=== PATIENT | female | born 1965 | race Caucasian/White ===

== ENCOUNTER 2017-01-12 08:47 | Observation (INO) | payer BC ==
[~2017-01-12] VITALS: Ht 180.3 cm; Wt 66.7 kg
[2017-01-12] VITALS (7 sets, daily range): BP systolic 99–157; BP diastolic 47–77; PULSE 55–62; TEMP 36.5–36.8; O2SAT 96–100; Ht 180.3 cm; Wt 66.7 kg
[2017-01-12] MEDS ORDERED: ONDANSETRON INJ 2 MG/ML 2 ML VIAL IV STA (08:59)
[2017-01-12] MEDS ORDERED: SODIUM CHLORIDE 0.9% 1000ML 1,000 ML IV STA ×2 (08:59→11:02)
--- NOTE | 2017-01-12 09:02 | EMERGENCY ROOM VISIT NOTE ---
History First contact with patient: 08:52 Chief Complaint: NAUSEA Stated Complaint: STOMACH PAIN,NAUSEA Nursing Triage Summary: Nausea, abdominal discomfort. "It may be food poisoning." per pt. History of Present Illness The patient is a 51 year old female who presents to the Emergency Room with complaints of nausea and abdominal pain. The patient states her pain started around 10 PM last night. She reported diffuse abdominal discomfort. She reports nausea. She rates her discomfort a 7/10. She denies any fevers. She denies any dysuria, urgency, frequency or hematuria. She denies diarrhea. She denies any earache, sore throat, cough. The patient was seen at [facility] and referred to the emergency department for further evaluation and management. Review of Systems A 10 system review of systems was completed with positives and pertinent negatives listed in the HPI. Past Medical/Surgical History Medical Problems: (1) Appendicitis Surgical Problems: (1) Previous back surgery Social History Smoking Status: Former Smoker Housing Status: lives with family Current/Historical Medications No Active Prescriptions or Reported Meds Allergies Coded Allergies: No Known Allergies (Unverified , 01/12/17) Physical Exam Vital Signs Date Time Temp Pulse Resp B/P Pulse Ox O2 Delivery O2 Flow Rate FiO2 01/12/17 15:00 60 14 115/70 100 Nasal Cannula 2 01/12/17 14:50 60 14 115/75 100 Mask 10 01/12/17 14:40 63 14 115/75 100 Mask 10 01/12/17 14:34 36.2 77 14 122/75 100 Mask 10 01/12/17 13:20 69 16 134/72 100 01/12/17 11:41 59 18 101/53 100 Room Air 01/12/17 10:44 16 116/76 99 Room Air 01/12/17 08:49 36.4 89 16 125/71 99 Room Air Physical Exam VITALS: Vitals are noted on the nurse's note and reviewed by myself. Vital signs stable. The patient is afebrile. GENERAL: This is a 51-year-old female, in no acute distress, nondiaphoretic, well-developed well-nourished. SKIN: The skin was without rashes, erythema, edema, or bruising. There is no tenting of the skin. Capillary reflex less than 2 seconds. HEAD: Normocephalic atraumatic. EARS: The external ears are normal in appearance. EYES: Pupils equal round and reactive to light and accommodation. Conjunctivae without injection, sclerae without icterus. Extraocular movements intact. NOSE: Patent, turbinates without inflammation or discharge. MOUTH: Mucous membranes moist. Tonsils are not enlarged. Pharynx without erythema or exudate. Uvula midline. Airway patent. Tongue does not deviate. NECK: Supple without nuchal rigidity. No JVD. HEART: Regular rate and rhythm without murmurs gallops or rubs. LUNGS: Clear to auscultation bilaterally without wheezes, rales or rhonchi. No retractions or accessory muscle use. ABDOMEN: Positive bowel sounds x 4. Soft, mild diffuse tenderness, moderate right lower quadrant tenderness, without masses or organomegaly. MUSCULOSKELETAL: No muscle atrophy, erythema, or edema noted. Full range of motion in all extremities. Normal gait. Strength 5/5 throughout. NEURO: Patient was alert and oriented to person place and time. No focal neurological deficits. Medical Decision & Procedures ER Provider Diagnostic Interpretation: [~ rep ct add3]] CT ABD/PELVIS IV AND ORAL CONT CLINICAL HISTORY: Right lower quadrant pain. Nausea. COMPARISON STUDY: None. TECHNIQUE: Following the IV administration of 122 mL of Optiray-320, CT scan of the abdomen and pelvis was performed from the lung bases to the proximal femurs. Images are reviewed in the axial, sagittal, and coronal planes. IV contrast was administered without complication. CT DOSE: 268.88 mGy.cm FINDINGS: Lower chest: There is a partially visualized 32 mm right breast mass. Liver: There is a 7 mm hypodensity within the right hepatic lobe, likely representing a cyst. Gallbladder: Unremarkable. Spleen: Normal in size and attenuation. Pancreas: Unremarkable. Adrenal glands: Unremarkable. Kidneys: There is symmetric renal cortical enhancement. The kidneys are normal in size without hydronephrosis. Bowel: There are no transition zones indicate bowel obstruction. There is no evidence of acute diverticulitis. There is appendiceal thickening with infiltration the periappendiceal fat. The findings are indicative of acute appendicitis. Peritoneum: There is trace free fluid likely physiologic. No free intraperitoneal air is visualized. Vasculature: The abdominal aorta is normal in course and caliber. Adenopathy: None. Pelvic viscera: The uterus is prominent with an 11 mm endometrial stripe. Skeletal structures: There is a sclerotic lesion within the L3 vertebra, likely representing a bone island IMPRESSION: 1. Appendiceal dilatation with infiltration of the periappendiceal inflammatory fat. The findings are indicative of acute appendicitis and surgical consultation is recommended 2. Partially visualized 32 mm circumscribed right breast mass Laboratory Results 01/12/17 09:05 Red Blood Count 4.72, Mean Corpuscular Volume 87.7, Mean Corpuscular Hemoglobin 30.3, Mean Corpuscular Hemoglobin Concent 34.5, Mean Platelet Volume 10.8, Neutrophils (%) (Auto) 87.2, Lymphocytes (%) (Auto) 6.2, Monocytes (%) (Auto) 6.2, Eosinophils (%) (Auto) 0.0, Basophils (%) (Auto) 0.2, Neutrophils # (Auto) 11.59, Lymphocytes # (Auto) 0.83, Monocytes # (Auto) 0.82, Eosinophils # (Auto) 0.00, Basophils # (Auto) 0.02 01/12/17 09:05 Test 01/12/17 09:05 01/12/17 09:22 White Blood Count 13.29 K/uL (4.8-10.8) Red Blood Count 4.72 M/uL (4.2-5.4) Hemoglobin 14.3 g/dL (12.0-16.0) Hematocrit 41.4 % (37-47) Mean Corpuscular Volume 87.7 fL (80-100) Mean Corpuscular Hemoglobin 30.3 pg (25-34) Mean Corpuscular Hemoglobin Concent 34.5 g/dl (32-36) Platelet Count 274 K/uL (130-400) Mean Platelet Volume 10.8 fL (7.4-10.4) Neutrophils (%) (Auto) 87.2 % Lymphocytes (%) (Auto) 6.2 % Monocytes (%) (Auto) 6.2 % Eosinophils (%) (Auto) 0.0 % Basophils (%) (Auto) 0.2 % Neutrophils # (Auto) 11.59 K/uL (1.4-6.5) Lymphocytes # (Auto) 0.83 K/uL (1.2-3.4) Monocytes # (Auto) 0.82 K/uL (0.11-0.59) Eosinophils # (Auto) 0.00 K/uL (0-0.5) Basophils # (Auto) 0.02 K/uL (0-0.2) RDW Standard Deviation 39.5 fL (36.4-46.3) RDW Coefficient of Variation 12.3 % (11.5-14.5) Immature Granulocyte % (Auto) 0.2 % Immature Granulocyte # (Auto) 0.03 K/uL (0.00-0.02) Urine Color YELLOW Urine Appearance SL CLOUDY (CLEAR) Urine pH 8.0 (4.5-7.5) Urine Specific [place] 1.015 (1.000-1.030) Urine Protein NEG (NEG) Urine Glucose (UA) NEG (NEG) Urine Ketones 2+ (NEG) Urine Occult Blood NEG (NEG) Urine Nitrite NEG (NEG) Urine Bilirubin NEG (NEG) Urine Urobilinogen NEG (NEG) Urine Leukocyte Esterase NEG (NEG) Anion Gap 11.0 mmol/L (3-11) Est Creatinine Clear Calc Drug Dose 65.1 ml/min Estimated GFR () 68.3 Estimated GFR (Non- 58.9 BUN/Creatinine Ratio 12.6 (10-20) Calcium Level 9.7 mg/dl (8.5-10.1) Total Bilirubin 0.7 mg/dl (0.2-1) Aspartate Amino Transf (AST/SGOT) 20 U/L (15-37) Alanine Aminotransferase (ALT/SGPT) 23 U/L (12-78) Alkaline Phosphatase 100 U/L (45-117) Total Protein 8.2 gm/dl (6.4-8.2) Albumin 4.3 gm/dl (3.4-5.0) Globulin 3.9 gm/dl (2.5-4.0) Albumin/Globulin Ratio 1.1 (0.9-2) Lipase 145 U/L (73-393) Urine Test NEG (NEG) Medications Administered Medications (Trade) Dose Ordered Sig/Phuc Route Start Time Stop Time Status Last Admin Dose Admin Sodium Chloride (Nss 1000ml) 1,000 ml @ 999 mls/hr Q1H1M STAT IV 01/12/17 08:59 01/12/17 09:59 DC 01/12/17 09:11 999 MLS/HR Ondansetron HCl 4 mg 4 mg NOW STAT IV 01/12/17 08:59 01/12/17 09:00 DC 01/12/17 09:10 4 MG Sodium Chloride (Nss 1000ml) 1,000 ml @ 999 mls/hr Q1H1M STAT IV 01/12/17 11:02 01/12/17 12:02 DC 01/12/17 11:38 999 MLS/HR Cefazolin Sodium (Ancef Inj) 1,000 mg STK-MED ONCE .ROUTE 01/12/17 12:56 01/12/17 13:00 DC 01/12/17 14:13 1,000 MG Heparin Sodium (Porcine) (Heparin Iv Bolus) 10,000 unit STK-MED ONCE .ROUTE 01/12/17 12:57 01/12/17 13:00 DC 01/12/17 14:14 10,000 UNIT Bupivacaine HCl (Marcaine 0.5% MPF Inj) 30 ml STK-MED ONCE .ROUTE 01/12/17 12:57 01/12/17 13:00 DC 01/12/17 14:15 30 ML ED Course The patient was seen and examined. Previous visits were reviewed. The patient does not have a fever. She does have a leukocytosis of 13.29. She does not have any significant electrolyte abnormality. Lipase was not elevated. Urinalysis reveals 2+ ketones. Urine test is negative. CT scan of the abdomen and pelvis was obtained. The imaging is consistent with acute appendicitis. Incidentally, a 32 mm circumscribe right breast mass is partially visualized on the abdomen and pelvis CT. I discussed this with the patient and she states that this mass is known. She states it is benign and she has had mammograms an extensive evaluation for it. The patient was given 4 mg IV Zofran and hydrated with 1 L of normal saline solution. The patient stated that her nausea and pain were well controlled. I discussed the case with Dr. Mckeon who will evaluate the patient. The case was also discussed with Dr. Marroquin who agrees with the assessment and treatment plan. Medical Decision DIFFERENTIAL DIAGNOSIS: Hepatitis, cholecystitis, cholangitis, biliary colic, pancreatitis, pneumonia, subdiaphragmatic abscess, appendicitis, inguinal hernia , nephrolithiasis, inflammatory bowel disease, mesenteric adenitis, peptic ulcer disease, GERD, gastritis, pancreatitis, myocardial infarction, pericarditis, ruptured aortic aneurysm, appendicitis, gastroenteritis, bowel obstruction, splenic infarct, diverticulitis, mesenteric ischemia, metabolic, peritonitis, among others. Impression Primary Impression: Appendicitis Departure Information Prescriptions No Active Prescriptions or Reported Meds Referrals No Doctor, Assigned (PCP) Patient Instructions [facility] Problem Qualifiers Primary Impression: Appendicitis Appendicitis type: acute appendicitis
[2017-01-12] MEDS ORDERED: OPTIRAY 320 IV PRN (09:15)
[2017-01-12 10:14] LABS: BASO % 0.2 %; BASO ABS # 0.02 K/uL (0-0.2); COMPLETE YES; HEMATOCRIT 41.4 % (37-47); IG% 0.2 %; LYMPH % 6.2 %; LYMPH ABS # 0.83 K/uL (1.2-3.4); MEAN CELL VOLUME 87.7 fL (80-100); MEAN CORPUSCULAR HEMOGLOBIN 30.3 pg (25-34); MEAN CORPUSCULAR HGB CONC 34.5 g/dl (32-36); MEAN PLATELET VOLUME 10.8 fL (7.4-10.4); MONO % 6.2 %; NEUT % 87.2 %; PLATELET COUNT 274 K/uL (130-400); RED BLOOD COUNT 4.72 M/uL (4.2-5.4); WHITE BLOOD COUNT 13.29 K/uL (4.8-10.8)
[2017-01-12 10:29] LABS: MANUAL MICROSCOPIC REQUIRED? NO; URINE APPEARANCE SL CLOUDY (CLEAR); URINE BILIRUBIN NEG (NEG); URINE COLOR YELLOW; URINE NITRITE NEG (NEG); URINE SPECIFIC GRAVITY 1.015 (1.000-1.030); UROBILINOGEN NEG (NEG)
[2017-01-12 10:34] LABS: REVIEW REQ? NO; ZZUR CULT IF INDIC CLEAN CATCH NO
[2017-01-12 10:35] LABS: BUN/CREATININE RATIO 12.6 (10-20); CALCIUM 9.7 mg/dl (8.5-10.1); CREATININE 1.1 mg/dl (0.60-1.20); POTASSIUM 3.8 mmol/L (3.5-5.1)
[2017-01-12 10:38] LABS: ALB/GLOB RATIO 1.1 (0.9-2)
--- NOTE | 2017-01-12 11:51 | DIAGNOSTIC IMAGING REPORT ---
CT ABD/PELVIS IV AND ORAL CONT CLINICAL HISTORY: Right lower quadrant pain. Nausea. COMPARISON STUDY: None. TECHNIQUE: Following the IV administration of 122 mL of Optiray-320, CT scan of the abdomen and pelvis was performed from the lung bases to the proximal femurs. Images are reviewed in the axial, sagittal, and coronal planes. IV contrast was administered without complication. CT DOSE: 268.88 mGy.cm FINDINGS: Lower chest: There is a partially visualized 32 mm right breast mass. Liver: There is a 7 mm hypodensity within the right hepatic lobe, likely representing a cyst. Gallbladder: Unremarkable. Spleen: Normal in size and attenuation. Pancreas: Unremarkable. Adrenal glands: Unremarkable. Kidneys: There is symmetric renal cortical enhancement. The kidneys are normal in size without hydronephrosis. Bowel: There are no transition zones indicate bowel obstruction. There is no evidence of acute diverticulitis. There is appendiceal thickening with infiltration the periappendiceal fat. The findings are indicative of acute appendicitis. Peritoneum: There is trace free fluid likely physiologic. No free intraperitoneal air is visualized. Vasculature: The abdominal aorta is normal in course and caliber. Adenopathy: None. Pelvic viscera: The uterus is prominent with an 11 mm endometrial stripe. Skeletal structures: There is a sclerotic lesion within the L3 vertebra, likely representing a bone island IMPRESSION: 1. Appendiceal dilatation with infiltration of the periappendiceal inflammatory fat. The findings are indicative of acute appendicitis and surgical consultation is recommended 2. Partially visualized 32 mm circumscribed right breast mass Electronically signed by: Zhao Blanco M.D. 01/12/2017 11:49 AM Dictated Date/Time: 01/12/2017 11:44 AM
[2017-01-12] MEDS ORDERED: CEFAZOLIN SOD 1 GM VIAL ONE ×2 (12:56→13:27)
[2017-01-12] MEDS ORDERED: BUPIVACAINE 0.5 % 5 MG/1 ML MPF 30ML VIAL ONE (12:57)
[2017-01-12] MEDS ORDERED: HEPARIN SOD (PORCINE) 1000 UNIT/ML 10 ML VIAL ONE (12:57)
[2017-01-12] MEDS ORDERED: ONDANSETRON INJ 2 MG/ML 2 ML VIAL ONE (13:00)
[2017-01-12] MEDS ORDERED: DEXAMETHASONE SOD INJ 4 MG/ML VIAL ONE (13:00)
[2017-01-12] MEDS ORDERED: GLYCOPYRROLATE INJ 0.2 MG/ML VIAL ONE ×2 (13:00→13:45)
[2017-01-12] MEDS ORDERED: PROPOFOL IV EMULSION 10 MG/ML 20 ML VIAL IV ONE (13:00)
[2017-01-12] MEDS ORDERED: ROCURONIUM BROMIDE 10 MG/ML 5 ML VIAL ONE (13:00)
[2017-01-12] MEDS ORDERED: FENTANYL CITRATE INJ 50 MCG/1 ML 2 ML VIAL ONE ×2 (13:00→13:38)
[2017-01-12] MEDS ORDERED: LIDOCAINE HCL 2% 2 ML VIAL (20MG/ML) ONE (13:00)
[2017-01-12] MEDS ORDERED: NEOSTIGMINE METHYLSULFATE 5 MG/5 ML SYR ONE (13:00)
--- NOTE | 2017-01-12 13:06 | History and Physical ---
History & Physical Date & Time of Service: Jan 12, 2017 at 12:55 Chief Complaint: Stomach Pain,Nausea Primary Care Physician: No Doctor, Assigned History of Present Illness Source: patient 51 y/o female presented to ER with complaint of abdominal pain that began last night at about 1700. It began after eating supper. It was initially a dull ache located throughout the center of her abdomen. It has now localized to the RLQ. It does not radiate. It is associated with nausea and she has had one episode of vomiting without hematemesis. She has not had fever. Her menstrual cycles are irregular but they have not changed. She has never had pain like this in the past. Past Medical/Surgical History PMH: None PSH: Lumbar disc surgery Social History Smoking Status: Former Smoker Smokeless Tobacco Use: No Alcohol Use: occasionally (rare) Allergies Coded Allergies: No Known Allergies (Unverified , 01/12/17) Home Medications No Active Prescriptions or Reported Meds Review of Systems Constitutional: No chills, No fever Respiratory: No cough, No sputum Cardiovascular: No chest pain Abdomen: + problem reported (as per HPI) Genitourinary - Female: + problem reported (as per HPI) Neurologic: No weakness Endocrine: No fatigue Integumentary: No rash Physical Exam Vital Signs Date Time Temp Pulse Resp B/P Pulse Ox O2 Delivery O2 Flow Rate FiO2 01/12/17 11:41 59 18 101/53 100 Room Air 01/12/17 10:44 16 116/76 99 Room Air 01/12/17 08:49 36.4 89 16 125/71 99 Room Air General Appearance: WD/WN, no apparent distress Head: normocephalic Neck: supple, no adenopathy Respiratory/Chest: chest non-tender, lungs clear Cardiovascular: regular rate, rhythm Abdomen/GI: normal bowel sounds, soft, + tenderness (RLQ) Back: normal inspection, no CVA tenderness Extremities/Musculoskelatal: normal inspection Skin: normal color Diagnostics Laboratory Results Results Past 24 Hours Test 01/12/17 09:05 01/12/17 09:22 Range/Units White Blood Count 13.29 4.8-10.8 K/uL Red Blood Count 4.72 4.2-5.4 M/uL Hemoglobin 14.3 12.0-16.0 g/dL Hematocrit 41.4 37-47 % Mean Corpuscular Volume 87.7 80-100 fL Mean Corpuscular Hemoglobin 30.3 25-34 pg Mean Corpuscular Hemoglobin Concent 34.5 32-36 g/dl Platelet Count 274 130-400 K/uL Mean Platelet Volume 10.8 7.4-10.4 fL Neutrophils (%) (Auto) 87.2 % Lymphocytes (%) (Auto) 6.2 % Monocytes (%) (Auto) 6.2 % Eosinophils (%) (Auto) 0.0 % Basophils (%) (Auto) 0.2 % Neutrophils # (Auto) 11.59 1.4-6.5 K/uL Lymphocytes # (Auto) 0.83 1.2-3.4 K/uL Monocytes # (Auto) 0.82 0.11-0.59 K/uL Eosinophils # (Auto) 0.00 0-0.5 K/uL Basophils # (Auto) 0.02 0-0.2 K/uL RDW Standard Deviation 39.5 36.4-46.3 fL RDW Coefficient of Variation 12.3 11.5-14.5 % Immature Granulocyte % (Auto) 0.2 % Immature Granulocyte # (Auto) 0.03 0.00-0.02 K/uL Urine Color YELLOW Urine Appearance SL CLOUDY CLEAR Urine pH 8.0 4.5-7.5 Urine Specific [place] 1.015 1.000-1.030 Urine Protein NEG NEG Urine Glucose (UA) NEG NEG Urine Ketones 2+ NEG Urine Occult Blood NEG NEG Urine Nitrite NEG NEG Urine Bilirubin NEG NEG Urine Urobilinogen NEG NEG Urine Leukocyte Esterase NEG NEG Sodium Level 138 136-145 mmol/L Potassium Level 3.8 3.5-5.1 mmol/L Chloride Level 101 98-107 mmol/L Carbon Dioxide Level 26 21-32 mmol/L Anion Gap 11.0 3-11 mmol/L Blood Urea Nitrogen 14 7-18 mg/dl Creatinine 1.10 0.60-1.20 mg/dl Est Creatinine Clear Calc Drug Dose 65.1 ml/min Estimated GFR () 68.3 Estimated GFR (Non- 58.9 BUN/Creatinine Ratio 12.6 10-20 Random Glucose 106 70-99 mg/dl Calcium Level 9.7 8.5-10.1 mg/dl Total Bilirubin 0.7 0.2-1 mg/dl Aspartate Amino Transf (AST/SGOT) 20 15-37 U/L Alanine Aminotransferase (ALT/SGPT) 23 12-78 U/L Alkaline Phosphatase 100 45-117 U/L Total Protein 8.2 6.4-8.2 gm/dl Albumin 4.3 3.4-5.0 gm/dl Globulin 3.9 2.5-4.0 gm/dl Albumin/Globulin Ratio 1.1 0.9-2 Lipase 145 73-393 U/L Urine Test NEG NEG Diagnostic Radiology I reviewed the images and the report. CT ABD/PELVIS IV AND ORAL CONT CLINICAL HISTORY: Right lower quadrant pain. Nausea. COMPARISON STUDY: None. TECHNIQUE: Following the IV administration of 122 mL of Optiray-320, CT scan of the abdomen and pelvis was performed from the lung bases to the proximal femurs. Images are reviewed in the axial, sagittal, and coronal planes. IV contrast was administered without complication. CT DOSE: 268.88 mGy.cm FINDINGS: Lower chest: There is a partially visualized 32 mm right breast mass. Liver: There is a 7 mm hypodensity within the right hepatic lobe, likely representing a cyst. Gallbladder: Unremarkable. Spleen: Normal in size and attenuation. Pancreas: Unremarkable. Adrenal glands: Unremarkable. Kidneys: There is symmetric renal cortical enhancement. The kidneys are normal in size without hydronephrosis. Bowel: There are no transition zones indicate bowel obstruction. There is no evidence of acute diverticulitis. There is appendiceal thickening with infiltration the periappendiceal fat. The findings are indicative of acute appendicitis. Peritoneum: There is trace free fluid likely physiologic. No free intraperitoneal air is visualized. Vasculature: The abdominal aorta is normal in course and caliber. Adenopathy: None. Pelvic viscera: The uterus is prominent with an 11 mm endometrial stripe. Skeletal structures: There is a sclerotic lesion within the L3 vertebra, likely representing a bone island IMPRESSION: 1. Appendiceal dilatation with infiltration of the periappendiceal inflammatory fat. The findings are indicative of acute appendicitis and surgical consultation is recommended 2. Partially visualized 32 mm circumscribed right breast mass Impression Assessment and Plan This patient's history, physical, labs and radiology studies are all consistent with acute appendicitis. I recommended a laparoscopic appendectomy. I explained the possible need to convert to an pen procedure. I explained the possible complications and answered her questions. Her was also present. She has signed a consent form.
[2017-01-12] MEDS ORDERED: LABETALOL HCL IV 5 MG/ML 20ML ONE (13:57)
[2017-01-12] MEDS ORDERED: FLUMAZENIL 0.1 MG/1 ML 10 ML VIAL IV PRN (14:15)
[2017-01-12] MEDS ORDERED: PROMETHAZINE HCL INJ 12.5 MG in SODIUM CHLORIDE 0.9% 50ML 50 ML IV PRN (14:15)
[2017-01-12] MEDS ORDERED: NALOXONE HCL 0.4 MG/1 ML VIAL/CARP IV PRN (14:15)
[2017-01-12] MEDS ORDERED: ONDANSETRON INJ 2 MG/ML 2 ML VIAL IV PRN ×2 (14:15→14:45)
[2017-01-12] MEDS ORDERED: EpHEDrine SULFATE INJ 50 MG/ML AMP IV PRN (14:15)
[2017-01-12] MEDS ORDERED: LABETALOL HCL IV 5 MG/ML 20ML IV PRN (14:15)
[2017-01-12] MEDS ORDERED: ATROPINE SULFATE 0.1 MG/ML 5ML SYR IV PRN (14:15)
[2017-01-12] MEDS ORDERED: HYDROmorphone INJ 1 MG/ML SYR IV PRN (14:15)
--- NOTE | 2017-01-12 14:43 | [facility] Post Operative Brief Note ---
Immediate Operative Summary Operative Date Jan 12, 2017. Pre-Operative Diagnosis Acute Appendicitis Post-Operative Diagnosis Acute Appendicitis Procedure(s) Performed Laparoscopic Appendectomy Surgeon Dr. Mckeon Pegger Dobby Looms Surgeon(s) None Estimated Blood Loss 5 mL Findings See dictation Specimens A: Appendix Drains None Anesthesia General Complication(s) None Disposition Recovery Room / PACU
[2017-01-12] MEDS ORDERED: OXYCODONE/ACETAMINOPHEN 5-325 TAB PO PRN (14:45)
[2017-01-12] MEDS ORDERED: MoRPHine SULFATE 4 MG/ML 1 ML CARP\\VIAL IV PRN (14:45)
--- NOTE | 2017-01-12 15:05 | Anesthesiology Progress Note ---
Anesthesia Post Op Note Date & Time Jan 12, 2017 at 15:05 Vital Signs Pain Intensity: 0 Vital Signs Past 12 Hours Date Time Temp Pulse Resp B/P Pulse Ox O2 Delivery O2 Flow Rate FiO2 01/12/17 15:00 60 14 115/70 100 Nasal Cannula 2 01/12/17 14:50 60 14 115/75 100 Mask 10 01/12/17 14:40 63 14 115/75 100 Mask 10 01/12/17 14:34 36.2 77 14 122/75 100 Mask 10 01/12/17 13:20 69 16 134/72 100 01/12/17 11:41 59 18 101/53 100 Room Air 01/12/17 10:44 16 116/76 99 Room Air 01/12/17 08:49 36.4 89 16 125/71 99 Room Air Notes Mental Status: alert / awake / arousable, participated in evaluation Pt Amnestic to Procedure: Yes Nausea / Vomiting: adequately controlled Pain: adequately controlled Airway Patency, RR, SpO2: stable & adequate BP & HR: stable & adequate Hydration State: stable & adequate Anesthetic Complications: no major complications apparent
--- NOTE | 2017-01-12 15:15 | OPERATIVE REPORT ---
DATE OF OPERATION: 01/12/2017 PREOPERATIVE DIAGNOSIS: Appendicitis. POSTOPERATIVE DIAGNOSIS: Same. PROCEDURE: Laparoscopic appendectomy. SURGEON: Dr. Mckeon. FINDINGS: The appendix for all but the proximal 1-2 cm was hyperemic, firm and dilated. It was adherent to the lateral abdominal wall. There was no evidence of perforation or abscess. The base of the appendix was normal as was the cecum. The visible bowel appeared normal. There was what appeared to be a small fibroid on the anterior surface of the uterus. The right ovary and tube appeared normal. OPERATION AND FINDINGS: TECHNIQUE: The patient was given a general anesthetic and the area was prepped and draped in usual sterile fashion. Transverse incision was made below the umbilicus, carried down through the subcutaneous tissue to the fascia which was grasped with 2 Ruslan clamps and incised between. The peritoneum was identified, incised, and the introducer was placed bluntly. The abdomen was then insufflated to a pressure of 15 mmHg with carbon dioxide. The lower midline introducer was placed under direct vision through small skin incision. Traction was placed medially on the cecum. The appendix was then able to be identified. The left lower quadrant introducer was placed under direct vision. Traction was placed anteriorly on the appendix. The tip was adherent to the lateral abdominal wall and I had to divide some flimsy adhesions, but once that was accomplished, I was able to elevate the tip of the appendix. The distal portion of the mesoappendix was then from some adhesions to the lateral abdominal wall allowing me to better elevate the mesoappendix and the appendix itself. That allowed me to identify the base of the appendix and I was able to establish a plane between the base of the appendix and the mesoappendix. The mesoappendix was divided using the Endo-SATYA. There was a small amount of oozing from that staple line that was easily controlled with cautery. That then allowed me also to confirm that I was at the base of the appendix and the appendix was amputated using the Endo-SATYA as well. There was a very small amount of bleeding from that staple line which was controlled as well. The appendix was placed into an Endobag and brought out through the left lower quadrant introducer site. That introducer was replaced and the right lower quadrant was irrigated. The irrigation removed. Any irrigation that had entered the right upper quadrant was removed and the irrigation in the pelvis was removed. The pelvic structures were visualized with findings as above. The staple lines were again inspected and there was no bleeding. The gas was allowed to escape and the introducers were removed. The fascia of the umbilical and left lower quadrant introducer sites were closed with interrupted 0 Vicryl and skin of all the incisions was closed with 4-0 Monocryl in either an interrupted or running subcuticular fashion. The skin was anesthetized with 0.5% Marcaine. The skin was cleansed, dried, benzoin placed. Steri-Strips applied. The estimated blood loss was 5 mL. Sponge, needle and instrument counts were correct prior to closure. The patient tolerated the surgical procedure without complication and was transferred to recovery. I attest to the content of the Intraoperative Record and any orders documented therein. Any exceptio ns are noted below.
[2017-01-12] MEDS ORDERED: IV FLUIDS COMPLETED PRN (15:30)
[2017-01-12] MEDS: D5W AND 1/2NSS + 20MEQ KCL 1,000 ML IV SCH (16:24)
[2017-01-12] MEDS ORDERED: NURSING VERBAL MED ORDER ONE (22:15)
[2017-01-12] MEDS ORDERED: ACETAMINOPHEN 500 MG TAB PO PRN (22:30)
[2017-01-13] MEDS: D5W AND 1/2NSS + 20MEQ KCL 1,000 ML IV SCH ×2 (03:04→11:51)
[2017-01-13 04:34] VITALS: BP 110/67; PULSE 68; TEMP 36.7; O2SAT 99
[2017-01-13 07:18] VITALS: BP 119/71; PULSE 68; TEMP 36.8; O2SAT 99
--- NOTE | 2017-01-13 11:17 | Surgery Progress Note ---
Surgery Progress Note Date of Service Jan 13, 2017. Subjective Post OP Day: 1 + bowel movement, + diet (tolerated regular diet), + feeling well, + flatus, + pain controlled, No nausea, No vomiting Objective Vital Signs: Date Time Temp Pulse Resp B/P Pulse Ox O2 Delivery O2 Flow Rate FiO2 01/13/17 07:31 Room Air 01/13/17 07:18 36.8 68 17 119/71 99 Room Air 01/13/17 04:34 36.7 68 18 110/67 99 Room Air 01/12/17 23:26 Room Air 01/12/17 23:24 36.8 62 18 99/58 98 Room Air 01/12/17 19:00 36.7 62 16 157/77 100 Room Air 01/12/17 17:31 36.7 62 16 136/76 96 Room Air 01/12/17 16:30 36.5 59 16 133/65 100 Room Air 01/12/17 16:00 36.5 55 16 140/47 97 Room Air 01/12/17 15:40 36.5 57 16 124/66 99 Room Air 01/12/17 15:40 99 Room Air 01/12/17 15:30 99 Room Air 01/12/17 15:30 36.5 57 16 124/66 99 Room Air 01/12/17 15:10 36.2 60 14 123/76 100 Nasal Cannula 2 01/12/17 15:00 60 14 115/70 100 Nasal Cannula 2 01/12/17 14:50 60 14 115/75 100 Mask 10 01/12/17 14:40 63 14 115/75 100 Mask 10 01/12/17 14:34 36.2 77 14 122/75 100 Mask 10 01/12/17 13:20 69 16 134/72 100 01/12/17 11:41 59 18 101/53 100 Room Air Abdomen: normal bowel sounds, non tender, non distended Incision(s): clean, dry, intact, no erythema, no drainage Assessment & Plan S/P appendectomy Doing well Can D/C to home Instructions discussed
--- NOTE | 2017-01-13 11:19 | Discharge Instructions ---
Discharge Instructions Date of Service Jan 13, 2017. Admission Reason for Admission: Appendicitis Discharge Discharge Diagnosis / Problem: Same Discharge Goals Goal(s): Decrease discomfort Activity Recommendations Activity Limitations: per Instructions/Follow-up section Shower/Bathe: tomorrow (Shower only) . Instructions / Follow-Up Instructions / Follow-Up Post-Surgical ~ Discharge Instructions Activity Recommendations: - lifting limitation: (10 pounds for 2 weeks), - exercise/sex/sports limit: (nonstrenuous for 2 weeks), - driving or machine use limit: (none for 1 week), - Shower/bathe limit: (may shower beginning tomorrow) Diet: - Resume previous diet SPECIAL CARE INSTRUCTIONS: - May shower tomorrow. Let water run over area and pat dry. - Leave steri strips on for one week. - Call the surgeon's office with any questions or concerns - - (ex. temperature higher than 101 degrees F, excessive bleeding or pain). MEDICATIONS: - Resume previous medications unless instructed otherwise by your surgeon. - Ibuprofen 600 mg every 6 hours with food - Percocet 1 every 4 hours, as needed for pain FOLLOW UP VISIT: - If not already scheduled, please call the office to schedule a two week follow-up appointment. Office number Current Hospital Diet Patient's current hospital diet: Regular Diet Discharge Diet Recommended Diet: Regular Diet Procedures Procedures Performed: Laparoscopic Appendectomy Pending Studies Studies pending at discharge: no Medical Emergencies . Who to Call and When: Medical Emergencies: If at any time you feel your situation is an emergency, please call 911 immediately. . Non-Emergent Contact Non-Emergency issues call your: Primary Care Provider, Surgeon Call Non-Emergent contact if: your pain is worsening, wound has increased redness, wound has increased pain . "Provider Documentation" section prepared by Emeka Mckeon. VTE Core Measure Inpt VTE Proph given/why not?: Treatment not indicated
[2017-01-13 11:22] VITALS: BP 119/71; PULSE 68; TEMP 36.8; O2SAT 99
--- NOTE | 2017-01-13 11:40 | DISCHARGE SUMMARY ---
DATE OF DISCHARGE: 01/13/2017. PRINCIPAL DIAGNOSIS: Acute appendicitis. SECONDARY DIAGNOSES: None. PRINCIPAL PROCEDURE: Laparoscopic appendectomy. SECONDARY PROCEDURES: None. HISTORY AND PHYSICAL: As per H\T\P on chart without additions or deletions. BRIEFLY: This is a 51-year-old female who was a little over 12 hour history of pain in the right lower quadrant. It initially began in the center of her abdomen. There was nausea and vomiting but no change in bowel habits. Her abdomen was soft with normal bowel sounds, but tender in the right lower quadrant. White blood cell count was 13.[address] scan of the abdomen and pelvis showed appendiceal dilatation with infiltration of the periappendiceal fat consistent with acute appendicitis. HOSPITAL COURSE: She was taken to the operating room where an uncomplicated laparoscopic appendectomy was performed. Pathology is pending at this time. There was no evidence of perforation. By postoperative day #1 she was ambulating. She had a bowel movement. She was tolerating a regular diet without nausea or vomiting. She had very little pain which was easily controlled. She was discharged to home on postoperative day #1. She was given her discharge instructions to follow up with me in 2 weeks.
== END 2017-01-13 12:10 | disposition home or self-care (01) ==
LOC: ENRESERVTM → ENRESERVDT → C.EDB 08:49 → C.MSW 14:45 → MERGE 14:45
PROVIDERS: ADMIT Surgery; ATTEND Surgery
DX: K35.80 Unspecified acute appendicitis (principal); F17.210 Nicotine dependence, cigarettes, uncomplicated